=== PATIENT | female | born 1935 | race American Indian/Alaskan Native ===

== ENCOUNTER 2018-01-28 14:47 | Emergency (ER) | payer MEDICARE ==
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
[2018-01-28 17:35] LABS: Basophils % (Auto) 0.1 % (0.0-1.8); Eosinophils % (Auto) 0.7 % (0.0-4.3); Hematocrit 34.8 % (30.3-42.9); Hemoglobin 11.3 gm/dl (10.1-14.3); Lymphocytes # (Auto) 1.7 K/mm3 (1.2-5.4); Lymphocytes % (Auto) 29.8 % (13.4-35.0); Mean Corpuscular HGB Conc 33 % (30-34); Mean Corpuscular Hemoglobin 30 pg (28-32); Mean Corpuscular Volume 91 fl (79-97); Monocytes # (Auto) 0.4 K/mm3 (0.0-0.8); Monocytes % (Auto) 7.8 % (0.0-7.3); Platelet Count 152 K/mm3 (140-440); Red Blood Count 3.84 M/mm3 (3.65-5.03); Red Cell Distribution Width 14.4 % (13.2-15.2)
[2018-01-28 17:43] LABS: Bacteria,Urine 4+ /HPF (Negative); Bilirubin,Urine NEG (Negative); Blood,Urine NEG (Negative); Color,Urine Amber (Yellow); Mucus,Urine 3+ /HPF
[2018-01-28 17:47] LABS: RBC,Urine < 1.0 /HPF (0.0-6.0)
[2018-01-28 17:49] LABS: Albumin 3.8 g/dL (3.9-5); Calcium 9.4 mg/dL (8.4-10.2)
[2018-01-28 17:49] LABS: Benzodiazepines Screen,Urine PRESUMPTIVE NEGATIVE; Cocaine Screen,Urine PRESUMPTIVE NEGATIVE; Methadone Screen,Urine PRESUMPTIVE NEGATIVE; Opiate Screen,Urine PRESUMPTIVE NEGATIVE
[2018-01-28 18:08] LABS: Amphetamine Screen,Urine PRESUMPTIVE POSITIVE; Cannabinoid Screen,Urine PRESUMPTIVE POSITIVE
[2018-01-29 06:14] LABS: Bacteria,Urine 1+ /HPF (Negative); Bilirubin,Urine NEG (Negative); Blood,Urine MOD (Negative); Color,Urine Yellow (Yellow); Mucus,Urine FEW /HPF; Protein,Urine <15 mg/dL mg/dL (Negative); Urobilinogen,Urine < 2.0 mg/dL (<2.0)
[2018-01-29 06:19] LABS: Amphetamine Screen,Urine PRESUMPTIVE NEGATIVE; Cannabinoid Screen,Urine PRESUMPTIVE NEGATIVE; Cocaine Screen,Urine PRESUMPTIVE NEGATIVE; Methadone Screen,Urine PRESUMPTIVE NEGATIVE; Opiate Screen,Urine PRESUMPTIVE NEGATIVE
[2018-01-29 06:33] LABS: Benzodiazepines Screen,Urine PRESUMPTIVE POSITIVE
--- NOTE | 2018-01-29 10:30 | Emergency Department Report ---
Blank Doc - Documentation Documentation: Patient is an 82-year-old female presents emergency room aggressive behaviors and dementia. Patient has been cleared by mental health. Patient denies suicidal and homicidal ideations at this time. Patient appears to be stable. Patient answers all questions appropriately. Patient is A&OX2. Patient is stable to be discharged to personal intermediate. Patient aware of discharge instructions. Patient voiced understanding. Nurse to give family member discharge instructions.
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
[2018-01-30 07:37] VITALS: BP 122/78
== END 2018-01-30 17:47 | disposition home or self-care (01) ==
LOC: ED 14:47
DX: F03.90 Unspecified dementia, unspecified severity, without behavioral disturbance, psychotic disturbance, mood disturbance, and anxiety (principal); N39.0 Urinary tract infection, site not specified; F91.8 Other conduct disorders; Z79.899 Other long term (current) drug therapy
CPT/HCPCS: 36415; 80053; 80307; 81001; 85025; 99283; G0480; 80320

== ENCOUNTER 2018-11-29 10:12 | Inpatient (IN) | payer MEDICARE ==
[2018-11-29] MEDS ORDERED: NACL 0.9% 500 ML 500 ML IV ONE (10:34)
[2018-11-29] MEDS ORDERED: PROTONIX IV ONE (10:35)
[2018-11-29] MEDS ORDERED: NACL 0.9% 1000 ML 1,000 ML ONE (10:56)
--- NOTE | 2018-11-29 11:15 | Emergency Department Report ---
ED General Adult HPI - General Chief complaint: GI Bleed Stated complaint: BLEEDING FROM RECTUM Time Seen by Provider: 11/29/18 10:34 Source: patient Mode of arrival: Ambulatory Limitations: No Limitations - History of Present Illness Initial comments: Since an 82-year-old female states that she is "squirting blood" from her rectum. She is here with I presume a daughter. They state that she had a colonoscopy in June by Dr. Sosa and "nothing was found" for the same problem. The patient has a history of dementia. They also state that she had a "infected hemorrhoid". The patient seems to have some sort of delusion about a surgical procedure. However the family states that she had no rectal surgery or procedure whatsoever. The patient cannot tell me whether she is having diarrhea or solid stool other than it comes out as above indicated. She states that she has some burning in the rectal area. She denies abdominal pain nausea vomiting fever or chills. -: hour(s) Severity scale (0 -10): 0 Consistency: intermittent Improves with: none Worsens with: none Associated Symptoms: denies other symptoms - Related Data Home Medications Medication Instructions Recorded Confirmed Last Taken Anusol-Hc 2.5 applic AK BID 09/18/18 09/18/18 Unknown Aricept 5 mg PO HS 09/18/18 09/18/18 Unknown Meloxicam 7.5 mg PO BID 09/18/18 09/18/18 Unknown Miralax 3350 17 gram PO DAILY PRN 09/18/18 09/18/18 Unknown Namenda 5 mg PO DAILY 09/18/18 09/18/18 Unknown Plo Gel Premium Lecithin 0.5 ml TP Q6HR PRN 09/18/18 09/18/18 Unknown clonazePAM 0.25 mg PO BID 09/18/18 09/18/18 Unknown Previous Rx's Medication Instructions Recorded Last Taken Type Hydrocortisone [Anucort-HC SUPPOS] 25 mg AK Q12H #10 supp.rect 09/19/18 Unknown Rx levoFLOXacin [Levaquin TAB] 500 mg PO QDAY #7 tablet 09/19/18 Unknown Rx Allergies Allergy/AdvReac Type Severity Reaction Status Date / Time No Known Allergies Allergy Verified 11/29/18 10:57 ED Review of Systems ROS: Stated complaint: BLEEDING FROM RECTUM Other details as noted in HPI Constitutional: denies: chills, fever Eyes: denies: eye pain, eye discharge, vision change ENT: denies: ear pain, throat pain Respiratory: denies: cough, shortness of breath, wheezing Cardiovascular: denies: chest pain, palpitations Endocrine: no symptoms reported Gastrointestinal: hematochezia. denies: abdominal pain, nausea, diarrhea Genitourinary: denies: urgency, dysuria, discharge Musculoskeletal: denies: back pain, joint swelling, arthralgia Skin: denies: rash, lesions Neurological: denies: headache, weakness, paresthesias Psychiatric: denies: anxiety, depression Hematological/Lymphatic: denies: easy bleeding, easy bruising ED Past Medical Hx - Past Medical History Hx Dementia: Yes Additional medical history: rectal polyps. Dementia - Social History Smoking Status: Never Smoker - Medications Home Medications: Home Medications Medication Instructions Recorded Confirmed Last Taken Type Anusol-Hc 2.5 applic AK BID 09/18/18 09/18/18 Unknown History Aricept 5 mg PO HS 09/18/18 09/18/18 Unknown History Meloxicam 7.5 mg PO BID 09/18/18 09/18/18 Unknown History Miralax 3350 17 gram PO DAILY PRN 09/18/18 09/18/18 Unknown History Namenda 5 mg PO DAILY 09/18/18 09/18/18 Unknown History Plo Gel Premium Lecithin 0.5 ml TP Q6HR PRN 09/18/18 09/18/18 Unknown History clonazePAM 0.25 mg PO BID 09/18/18 09/18/18 Unknown History Hydrocortisone [Anucort-HC SUPPOS] 25 mg AK Q12H #10 supp.rect 09/19/18 Unknown Rx levoFLOXacin [Levaquin TAB] 500 mg PO QDAY #7 tablet 09/19/18 Unknown Rx ED Physical Exam - General Limitations: No Limitations General appearance: alert, in no apparent distress - Head Head exam: Present: atraumatic, normocephalic - Eye Eye exam: Present: normal appearance. Absent: scleral icterus - ENT ENT exam: Present: mucous membranes moist - Neck Neck exam: Present: normal inspection - Respiratory Respiratory exam: Present: normal lung sounds bilaterally. Absent: respiratory distress - Cardiovascular Cardiovascular Exam: Present: regular rate, normal rhythm. Absent: systolic murmur, diastolic murmur, rubs, gallop - GI/Abdominal GI/Abdominal exam: Present: soft, normal bowel sounds. Absent: distended, tenderness, guarding, rebound, rigid - Rectal Rectal exam: Present: heme (-) stool (Hemoccult test was completely negative. The stool was light brown and semisolid. There is no mass or significant hemorrhoid noted.), mass. Absent: black stool, bloody stool, tenderness - Extremities Exam Extremities exam: Present: normal inspection - Back Exam Back exam: Present: normal inspection - Neurological Exam Neurological exam: Present: alert, oriented X3, CN II-XII intact. Absent: motor sensory deficit - Psychiatric Psychiatric exam: Present: normal affect, normal mood - Skin Skin exam: Present: warm, dry, intact, normal color. Absent: rash ED Course Vital Signs 11/29/18 10:19 Pulse Rate 98 H Respiratory 18 Rate Blood Pressure 136/84 [Left] O2 Sat by Pulse 100 Oximetry - Reevaluation(s) Reevaluation #1: The patient is apparently fine depleted and prerenal. We will proceed with straight cath. IV fluids. Admission to hospital service for acute evaluation. 11/29/18 13:34 ED Medical Decision Making - Lab Data Result diagrams: 11/29/18 11:08 11/29/18 11:08 Laboratory Results - last 24 hr 11/29/18 11/29/18 11/29/18 11:08 11:08 11:08 WBC 5.6 RBC 4.08 Hgb 12.0 Hct 36.5 MCV 89 MCH 29 MCHC 33 RDW 14.2 Plt Count 229 Lymph % (Auto) 37.7 H Crawford % (Auto) 9.3 H Eos % (Auto) 0.4 Baso % (Auto) 0.3 Lymph # 2.1 Crawford # 0.5 Eos # 0.0 Baso # 0.0 Seg Neutrophils % 52.3 Seg Neutrophils # 2.9 PT 14.1 INR 1.05 APTT 28.1 Sodium 144 Potassium 4.9 Chloride 109.3 H Carbon Dioxide 22 Anion Gap 18 BUN 36 H Creatinine 1.9 H Estimated GFR 30 BUN/Creatinine Ratio 19 Glucose 135 H Lactic Acid Calcium 9.4 Magnesium 2.00 Total Bilirubin 0.30 Direct Bilirubin < 0.2 Indirect Bilirubin 0.1 AST 25 ALT 11 Alkaline Phosphatase 75 Troponin T NT-Pro-B Natriuret Pep Total Protein 7.6 Albumin 4.0 Albumin/Globulin Ratio 1.1 Lipase 35 Blood Type Antibody Screen 11/29/18 11/29/18 11/29/18 11:08 11:08 11:08 WBC RBC Hgb Hct MCV MCH MCHC RDW Plt Count Lymph % (Auto) Crawford % (Auto) Eos % (Auto) Baso % (Auto) Lymph # Crawford # Eos # Baso # Seg Neutrophils % Seg Neutrophils # PT INR APTT Sodium Potassium Chloride Carbon Dioxide Anion Gap BUN Creatinine Estimated GFR BUN/Creatinine Ratio Glucose Lactic Acid 1.50 Calcium Magnesium Total Bilirubin Direct Bilirubin Indirect Bilirubin AST ALT Alkaline Phosphatase Troponin T 0.023 NT-Pro-B Natriuret Pep 88.09 Total Protein Albumin Albumin/Globulin Ratio Lipase Blood Type O POSITIVE Antibody Screen Negative - Radiology Data Radiology results: report reviewed FINDINGS: Unchanged aortic calculi. The cardiomediastinal silhouette is normal. No focal consolidation. Mild ground-glass opacities are seen in the lower lobes. There is a subtle rounded ground-glass nodular opacity projecting in the medial aspect of the right upper lobe measuring 1.8 centimeters. No pleural effusion. No pneumothorax. No acute osseous abnormality. IMPRESSION: 1. Mild bibasilar atelectasis versus early pneumonia. 2. Subtle nodular opacity projecting in the medial aspect of the right upper lobe. Recommend further evaluation with chest CT with contrast. Critical care attestation.: If time is entered above; I have spent that time in minutes in the direct care of this critically ill patient, excluding procedure time. ED Disposition Clinical Impression: Acute renal failure with tubular necrosis, Hematochezia Dementia Qualifiers: Dementia type: unspecified type Dementia behavioral disturbance: with behavioral disturbance Qualified Code(s): F03.91 - Unspecified dementia with behavioral disturbance Disposition: OP ADMIT IP TO THIS HOSP Is pt being admited?: Yes Does the pt Need Aspirin: No Condition: Stable Referrals: MATTY HENDERSON [Primary Care Provider] - 3-5 Days Forms: Accompanied Note Time of Disposition: 13:35
--- NOTE | 2018-11-29 11:27 | XRay Report ---
FINAL REPORT EXAM: XR CHEST 1V AP HISTORY: GI Bleed TECHNIQUE: Frontal chest radiograph. PRIORS: 09/18/2018. FINDINGS: Unchanged aortic calculi. The cardiomediastinal silhouette is normal. No focal consolidation. Mild ground-glass opacities are seen in the lower lobes. There is a subtle ro unded ground-glass nodular opacity projecting in the medial aspect of the right upper lobe measuring 1.8 centimeters. No pleural effusion. No pneumothorax. No acute osseous abnormality. IMPRESSION: 1. Mild bibasilar atelectasis versus early pneumonia. 2. Subtle nodular opacity projecting in the medial aspect of the right upper lobe. Recommend further evaluation with chest CT with contrast.
[2018-11-29 11:51] LABS: Alanine Aminotransferase 11 units/L (7-56); BUN/Creatinine Ratio 19; Blood Urea Nitrogen 36 mg/dL (7-17); Calcium 9.4 mg/dL (8.4-10.2); Hemolysis Index 6
[2018-11-29 11:52] LABS: Basophils % (Auto) 0.3 % (0.0-1.8); Eosinophils % (Auto) 0.4 % (0.0-4.3); Hematocrit 36.5 % (30.3-42.9); Lymphocytes # (Auto) 2.1 K/mm3 (1.2-5.4); Lymphocytes % (Auto) 37.7 % (13.4-35.0); Mean Corpuscular HGB Conc 33 % (30-34); Mean Corpuscular Volume 89 fl (79-97); Monocytes # (Auto) 0.5 K/mm3 (0.0-0.8); Monocytes % (Auto) 9.3 % (0.0-7.3); Platelet Count 229 K/mm3 (140-440); Red Blood Count 4.08 M/mm3 (3.65-5.03); Red Cell Distribution Width 14.2 % (13.2-15.2)
[2018-11-29 11:55] LABS: Bilirubin,Direct < 0.2 mg/dL (0-0.2)
[2018-11-29 12:03] LABS: INR 1.05 (0.87-1.13)
[2018-11-29 12:04] LABS: Partial Thromboplastin Time 28.1 Sec. (24.2-36.6)
[2018-11-29] MEDS ORDERED: NACL 0.9% 1000 ML 1,000 ML IV ONE (12:46)
--- NOTE | 2018-11-29 13:30 | History and Physical Report ---
History of Present Illness Chief complaint: She is getting more confused, and not eating and drinking anything History of present illness: 82 YO Female Assisted Living Facility Resident with Dementia with Behavioral dis turbance, Rectal Polyps presents to ED for evaluation. Pt is confused and unable to provide detailed history. Pt history taken from her daughter who is at bedside during exam and interview. As per daughter, the patient has experienced worsening confusion, hallucinations, and decreased oral intake over the past 2 weeks, as well as delusions. Pt complains of rectal bleeding without evidence of bleeding. Pt transported to [facility] by her daughter for further care and evaluation due to patient complaints of "blood coming out of my butt". Pt seen and evaluated in ED and found to have ARF, Encephalopathy, and Debility. No evidence of rectal bleeding on exam without blood in the rectal vault. No further history obtainable. Past History Past Medical History: other (Dementia, Rectal Polyps) Past Surgical History: Other (colonoscopy) Social history: . denies: smoking, alcohol abuse, prescription drug abuse Family history: no significant family history (reviewed) Medications and Allergies Allergies Allergy/AdvReac Type Severity Reaction Status Date / Time No Known Allergies Allergy Verified 11/29/18 10:57 Home Medications Medication Instructions Recorded Confirmed Last Taken Type Anusol-Hc 2.5 applic [place] BID 09/18/18 09/18/18 Unknown History Aricept 5 mg PO HS 09/18/18 09/18/18 Unknown History Meloxicam 7.5 mg PO BID 09/18/18 09/18/18 Unknown History Miralax 3350 17 gram PO DAILY PRN 09/18/18 09/18/18 Unknown History Namenda 5 mg PO DAILY 09/18/18 09/18/18 Unknown History Plo Gel Premium Lecithin 0.5 ml TP Q6HR PRN 09/18/18 09/18/18 Unknown History clonazePAM 0.25 mg PO BID 09/18/18 09/18/18 Unknown History Hydrocortisone [Anucort-HC SUPPOS] 25 mg [place] Q12H #10 supp.rect 09/19/18 Unknown Rx levoFLOXacin [Levaquin TAB] 500 mg PO QDAY #7 tablet 09/19/18 Unknown Rx Active Meds: Active Medications Sodium Chloride (Nacl 0.9% 1000 Ml) 1,000 mls @ 125 mls/hr IV ONCE ONE Stop: 11/29/18 20:45 Review of Systems ROS unobtainable: due to mental status Exam - Constitutional Vitals: Temp Pulse Resp BP Pulse Ox 98 H 18 136/84 100 11/29/18 10:19 11/29/18 10:19 11/29/18 10:19 11/29/18 10:19 General appearance: Present: mild distress - EENT Eyes: Present: PERRL ENT: hearing intact, clear oral mucosa - Neck Neck: Present: supple, normal ROM - Respiratory Respiratory effort: normal Respiratory: bilateral: CTA - Cardiovascular Heart Sounds: Present: S1 & S2. Absent: rub, click - Extremities Extremities: pulses symmetrical, No edema Peripheral Pulses: within normal limits - Abdominal General gastrointestinal: Present: soft, non-tender, non-distended, normal bowel sounds Female genitourinary: Present: normal - Rectal Rectal Exam: normal exam-external/orifice, other (No blood in rectal vault, no evidence of rectal bleeding, no hemorrhoids) - Integumentary Integumentary: Present: clear, dry, decreased turgor - Musculoskeletal Musculoskeletal: generalized weakness - Psychiatric Psychiatric: no appropriate mood/affect, no intact judgment & insight, no memory intact, agitated - Neurologic Neurologic: no gait normal Results - Labs CBC & Chem 7: 11/29/18 11:08 11/29/18 11:08 Labs: Abnormal lab results 11/29/18 11/29/18 Range/Units 11:08 11:08 Lymph % (Auto) 37.7 H (13.4-35.0) % [place] % (Auto) 9.3 H (0.0-7.3) % Chloride 109.3 H (98-107) mmol/L BUN 36 H (7-17) mg/dL Creatinine 1.9 H (0.7-1.2) mg/dL Glucose 135 H (65-100) mg/dL Assessment and Plan - Patient Problems (1) Encephalopathies Current Visit: Yes Status: Acute Plan to address problem: CT head, neuro check, thyroid panel, fall precautions, aspiration precautions, seizure precautions, supportive care, urinalysis, cbc, cmp. (2) Volume depletion Current Visit: Yes Status: Acute Plan to address problem: IVF resuscitation therapy, monitor uop q shift, urinalysis (3) Acute renal failure with tubular necrosis Current Visit: Yes Status: Acute Plan to address problem: IVF resuscitation therapy, monitor uop q shift, urinalysis (4) DVT prophylaxis Current Visit: Yes Status: Acute Plan to address problem: SCD to BLE while in bed.
[2018-11-29] MEDS ORDERED: PROVENTIL IH PRN (13:31)
[2018-11-29] MEDS ORDERED: SODIUM CHLORIDE FLUSH SYRINGE 10 ML IV PRN (13:31)
[2018-11-29] MEDS ORDERED: MIRALAX PO PRN (13:33)
[2018-11-29] MEDS ORDERED: [UNRECOGNIZED DRUG - OTHER] TP PRN (13:33)
[2018-11-29] MEDS ORDERED: MIRALAX 3350 PO PRN (13:49)
[2018-11-29] MEDS: ANUCORT-HC PR SCH (14:20)
[2018-11-29 16:02] LABS: Free T4 (Free Thyroxine) 1.12 ng/dL (0.76-1.46)
--- NOTE | 2018-11-29 18:03 | Cat Scan Report ---
FINAL REPORT EXAM: CT HEAD/BRAIN WO CON HISTORY: confusion TECHNIQUE: CT head without contrast PRIORS: None. FINDINGS: No acute intra-axial or extra-axial hemorrhage is identified. There is no evidence of midline shift or mass effect. The ventricles and sulci are within normal limits. Mora-white matter differentiation is intact. No acute parenchymal abnormalities seen. Bony calvarium is grossly intact. Visualized portions of the mastoids and paranasal sinuses are unre markable. IMPRESSION: Negative CT head
[2018-11-29] MEDS: SODIUM CHLORIDE FLUSH SYRINGE 10 ML IV SCH (21:12)
[2018-11-29] MEDS: ARICEPT PO SCH (21:12)
[2018-11-29] MEDS ORDERED: MELOXICAM 7.5 MG PO SCH (22:00)
[2018-11-29] MEDS ORDERED: CLONAZEPAM 0.25 MG PO SCH (22:00)
[2018-11-29] MEDS ORDERED: ARICEPT 5 MG PO SCH (22:00)
[2018-11-29] MEDS ORDERED: ANUSOL HC PR SCH (22:00)
[2018-11-29] MEDS: MOBIC PO SCH (23:25)
[2018-11-29] MEDS: PROCTOSOL-HC PR SCH (23:26)
[2018-11-30] MEDS: ANUCORT-HC PR SCH ×2 (02:30→15:00)
[2018-11-30] MEDS ORDERED: NAMENDA 5 MG PO SCH (10:00)
[2018-11-30] MEDS: NAMENDA PO SCH (10:46)
[2018-11-30] MEDS: MOBIC PO SCH ×2 (10:47→22:53)
[2018-11-30] MEDS: SODIUM CHLORIDE FLUSH SYRINGE 10 ML IV SCH ×2 (10:50→22:53)
[2018-11-30] MEDS: PROCTOSOL-HC PR SCH ×2 (11:00→22:51)
[2018-11-30 13:37] LABS: Hematocrit 33.5 % (30.3-42.9); Hemoglobin 11.2 gm/dl (10.1-14.3)
--- NOTE | 2018-11-30 15:20 | Progress Note ---
Assessment and Plan Assessment and plan: 82 YO Female Assisted Living Facility Resident with Dementia with Behavioral disturbance, Rectal Polyps presents to ED for evaluation. Pt is confused and unable to provide detailed history. Pt history taken from her daughter who is at bedside during exam and interview. As per daughter, the patient has experienced worsening confusion, hallucinations, and decreased oral intake over the past 2 weeks, as well as delusions. Pt complains of rectal bleeding without evidence of bleeding. Pt transported to [facility] by her daughter for further care and evaluation due to patient complaints of "blood coming out of my butt". Pt seen and evaluated in ED and found to have ARF, Encephalopathy, and Debility. No evidence of rectal bleeding on exam without blood in the rectal vault. Interval evaluation Patient seen today reports no new complaints, Per review of records, patient with baseline Dementia and appears to be at baseline. No new bleeding noted Rectal Hemorrhioids with suspected bleed Acute on chronic Encephalopathy Atalectasis Acute Renal failure with tubular Necrosis Dehydration Dementia Plan Supportive care Continue iv fluids IS to help with noted atalectasis No evidence of sepsis. monitor h/h and repeat BMP. Anusol to rectum DVT/GI porphy anticipate discharge in am if renal function improved Discussed with Nursing staff. History Interval history: Patient is seen today for: Altered mental status. Seen and examined at bedside; 24hour events reviewed; nursing staff ; no adverse overnight events reported to me; Denies any chest pain, nausea, vomiting, diarrhea. reports feeling pain in her "backside" chronic per the patient. No new bleeding noted No fever noted blood pressure controlled Hospitalist Physical - Physical exam Narrative exam: VITAL SIGNS: Reviewed. GENERAL: The patient appeared well nourished and normally developed. Otherwise lethargic. Vital signs as documented. HEAD: No signs of head trauma. EYES: Pupils are equal. Extraocular motions intact. EARS: Hearing grossly intact. MOUTH: Oropharynx is normal. NECK: No adenopathy, no JVD. CHEST: Chest with clear breath sounds bilaterally. No wheezes, rales, or rhonchi. CARDIAC: Regular rate and rhythm. S1 and S2, without murmurs, gallops, or rubs. VASCULAR: No Edema. Peripheral pulses normal and equal in all extremities. ABDOMEN: Soft, without detectable tenderness. No sign of distention. No rebound or guarding, and no masses palpated. Bowel Sounds normal. MUSCULOSKELETAL: Good range of motion of all major joints. Extremities without clubbing, cyanosis or edema. NEUROLOGIC EXAM: Alert and oriented x 3. No focal sensory or strength deficits. Speech normal. Follows commands. PSYCHIATRIC: Mood normal SKIN: No rash or lesions. - Constitutional Vitals: Temp Pulse Resp BP Pulse Ox 97.9 F 64 20 127/65 99 11/30/18 13:27 11/30/18 13:27 11/30/18 13:27 11/30/18 13:27 11/30/18 13:27 General appearance: Present: mild distress Results - Labs CBC & Chem 7: 11/30/18 13:07 11/29/18 11:08 Labs: Laboratory Last Values WBC 5.6 K/mm3 (4.5-11.0) 11/29/18 11:08 RBC 4.08 M/mm3 (3.65-5.03) 11/29/18 11:08 Hgb 11.2 gm/dl (10.1-14.3) 11/30/18 13:07 Hct 33.5 % (30.3-42.9) 11/30/18 13:07 MCV 89 fl (79-97) 11/29/18 11:08 MCH 29 pg (28-32) 11/29/18 11:08 MCHC 33 % (30-34) 11/29/18 11:08 RDW 14.2 % (13.2-15.2) 11/29/18 11:08 Plt Count 229 K/mm3 (140-440) 11/29/18 11:08 Lymph % (Auto) 37.7 % (13.4-35.0) H 11/29/18 11:08 [place] % (Auto) 9.3 % (0.0-7.3) H 11/29/18 11:08 Eos % (Auto) 0.4 % (0.0-4.3) 11/29/18 11:08 Baso % (Auto) 0.3 % (0.0-1.8) 11/29/18 11:08 Lymph # 2.1 K/mm3 (1.2-5.4) 11/29/18 11:08 [place] # 0.5 K/mm3 (0.0-0.8) 11/29/18 11:08 Eos # 0.0 K/mm3 (0.0-0.4) 11/29/18 11:08 Baso # 0.0 K/mm3 (0.0-0.1) 11/29/18 11:08 Seg Neutrophils % 52.3 % (40.0-70.0) 11/29/18 11:08 Seg Neutrophils # 2.9 K/mm3 (1.8-7.7) 11/29/18 11:08 PT 14.1 Sec. (12.2-14.9) 11/29/18 11:08 INR 1.05 (0.87-1.13) 11/29/18 11:08 APTT 28.1 Sec. (24.2-36.6) 11/29/18 11:08 Sodium 144 mmol/L (137-145) 11/29/18 11:08 Potassium 4.9 mmol/L (3.6-5.0) 11/29/18 11:08 Chloride 109.3 mmol/L (98-107) H 11/29/18 11:08 Carbon Dioxide 22 mmol/L (22-30) 11/29/18 11:08 Anion Gap 18 mmol/L 11/29/18 11:08 BUN 36 mg/dL (7-17) H 11/29/18 11:08 Creatinine 1.9 mg/dL (0.7-1.2) H 11/29/18 11:08 Estimated GFR 30 ml/min 11/29/18 11:08 BUN/Creatinine Ratio 19 % 11/29/18 11:08 Glucose 135 mg/dL (65-100) H 11/29/18 11:08 Lactic Acid 1.50 mmol/L (0.7-2.0) 11/29/18 11:08 Calcium 9.4 mg/dL (8.4-10.2) 11/29/18 11:08 Magnesium 2.00 mg/dL (1.7-2.3) 11/29/18 11:08 Total Bilirubin 0.30 mg/dL (0.1-1.2) 11/29/18 11:08 Direct Bilirubin < 0.2 mg/dL (0-0.2) 11/29/18 11:08 Indirect Bilirubin 0.1 mg/dL 11/29/18 11:08 AST 25 units/L (5-40) 11/29/18 11:08 ALT 11 units/L (7-56) 11/29/18 11:08 Alkaline Phosphatase 75 units/L (35-129) 11/29/18 11:08 Troponin T 0.023 ng/mL (0.00-0.029) 11/29/18 11:08 NT-Pro-B Natriuret Pep 88.09 pg/mL (0-900) 11/29/18 11:08 Total Protein 7.6 g/dL (6.3-8.2) 11/29/18 11:08 Albumin 4.0 g/dL (3.9-5) 11/29/18 11:08 Albumin/Globulin Ratio 1.1 % 11/29/18 11:08 Lipase 35 units/L (13-60) 11/29/18 11:08 TSH 3.810 mlU/mL (0.270-4.200) 11/29/18 15:23 Free T4 1.12 ng/dL (0.76-1.46) 11/29/18 15:23 Blood Type O POSITIVE 11/29/18 11:08 Antibody Screen Negative 11/29/18 11:08
[2018-11-30] MEDS ORDERED: ROCEPHIN/NS 1 GM/50 ML 1 GM/50 ML BAG IV SCH (16:00)
[2018-11-30 16:12] LABS: BUN/Creatinine Ratio 32; Blood Urea Nitrogen 29 mg/dL (7-17); Calcium 9.1 mg/dL (8.4-10.2); Hemolysis Index 9
[2018-11-30 19:38] LABS: Bilirubin,Urine NEG (Negative); Blood,Urine SM (Negative); Color,Urine Yellow (Yellow); Hyaline Casts,Urine 1 /LPF; Mucus,Urine FEW /HPF; Protein,Urine <15 mg/dL mg/dL (Negative); Urobilinogen,Urine < 2.0 mg/dL (<2.0)
[2018-11-30] MEDS: ARICEPT PO SCH (22:52)
[2018-12-01] MEDS: ANUCORT-HC PR SCH ×2 (03:00→15:50)
[2018-12-01 06:15] LABS: BUN/Creatinine Ratio 33; Blood Urea Nitrogen 33 mg/dL (7-17); Calcium 8.7 mg/dL (8.4-10.2); Hemolysis Index 4
[2018-12-01 08:23] VITALS: BP 136/69
[2018-12-01] MEDS: SODIUM CHLORIDE FLUSH SYRINGE 10 ML IV SCH (10:00)
[2018-12-01] MEDS: PROCTOSOL-HC PR SCH (10:01)
[2018-12-01] MEDS: MOBIC PO SCH (10:01)
[2018-12-01] MEDS: NAMENDA PO SCH (10:01)
--- NOTE | 2018-12-01 11:23 | Discharge Summary ---
Providers - Providers Date of Admission: 11/29/18 16:00 Attending physician: DAKOTA HUTTON MD 12/01/18 10:39 Physical Therapy Evaluation and Treat [CONS] Routine Comment: Reason For Exam: Generalized Weakness Primary care physician: MATTY HENDERSON Hospitalization Reason for admission: hemorrhiodal bleed Condition: Stable Hospital course: 82 YO Female Assisted Living Facility Resident with Dementia with Behavioral disturbance, Rectal Polyps presents to ED for evaluation. Pt is confused and unable to provide detailed history. Pt history taken from her daughter who is at bedside during exam and interview. As per daughter, the patient has experienced worsening confusion, hallucinations, and decreased oral intake over the past 2 weeks, as well as delusions. Pt complains of rectal bleeding without evidence of bleeding. Pt transported to [facility] by her daughter for further care and evaluation due to patient complaints of "blood coming out of my butt". Pt seen and evaluated in ED and found to have ARF, Encephalopathy, and Debility. No evidence of rectal bleeding on exam without blood in the rectal vault. Interval evaluation Patient seen today reports no new complaints, Per review of records, patient with baseline Dementia and appears to be at baseline. No new bleeding noted. Hgb remained stable. Medications were discussed in detail and renewed. I also discussed with family about treatment plan options Rectal Hemorrhioids. NO GI BLEED Acute on chronic Encephalopathy Secodnary to Dementia. Now back to baseline Atalectasis Acute Renal failure with tubular Necrosis Dehydration Dementia Disposition: DC/[place]-[address] [facility] Time spent for discharge: 35 mins Core Measure Documentation - Palliative Care Palliative Care/ Comfort Measures: Not Applicable - Core Measures Any of the following diagnoses?: none Exam - Physical Exam Narrative exam: VITAL SIGNS: Reviewed. GENERAL: The patient appeared well nourished and normally developed. Vital signs as documented. HEAD: No signs of head trauma. EYES: Pupils are equal. Extraocular motions intact. EARS: Hearing grossly intact. MOUTH: Oropharynx is normal. NECK: No adenopathy, no JVD. CHEST: Chest with clear breath sounds bilaterally. No wheezes, rales, or rhonchi. CARDIAC: Regular rate and rhythm. S1 and S2, without murmurs, gallops, or rubs. VASCULAR: No Edema. Peripheral pulses normal and equal in all extremities. ABDOMEN: Soft, without detectable tenderness. No sign of distention. No rebound or guarding, and no masses palpated. Bowel Sounds normal. MUSCULOSKELETAL: Good range of motion of all major joints. Extremities without clubbing, cyanosis or edema. NEUROLOGIC EXAM: Alert and oriented x 3. No focal sensory or strength de ficits. Speech normal. Follows commands. PSYCHIATRIC: Mood normal SKIN: No rash or lesions. - Constitutional Vitals: Temp Pulse Resp BP Pulse Ox 98.5 F 62 20 136/69 97 12/01/18 07:29 12/01/18 10:00 12/01/18 07:29 12/01/18 07:29 12/01/18 07:29 Plan Activity: advance as tolerated, fall precautions Diet: low fat Special Instructions: record daily BP diary Follow up with: MATTY HENDERSON [Primary Care Provider] - 3-5 Days Forms: Accompanied Note Prescriptions: Anusol-Hc 2.5 applic [place] BID #1 Miralax 3350 17 gram PO DAILY PRN #14 PRN Reason: Constipation
== END 2018-12-01 16:25 | disposition home or self-care (01) | DRG 70 ==
LOC: ED 10:12 → 2B-ACE 16:00
PROVIDERS: ADMIT Internal Medicine; ATTEND Internal Medicine
DX: G93.40 Encephalopathy, unspecified (principal); N17.0 Acute kidney failure with tubular necrosis; J98.11 Atelectasis; F03.91 Unspecified dementia, unspecified severity, with behavioral disturbance; K64.8 Other hemorrhoids; E86.9 Volume depletion, unspecified; E86.0 Dehydration; Z79.899 Other long term (current) drug therapy
CPT/HCPCS: 36415; 70450; 71045; 80048; 80076; 81001; 82140; 83690; 83735; 83880; 84439; 84443; 84484; 85014; 85018; 85025; 85610; 85730; 86850; 86900; 86901; 87116; 93005; 93010; G0378; C9113; J7030

== ENCOUNTER 2019-08-25 08:19 | Observation (INO) | payer MEDICARE ==
--- NOTE | 2019-08-25 09:04 | Emergency Department Report ---
ED Chest Pain HPI - General Chief Complaint: Chest Pain Stated Complaint: CHEST DISCOMFORT Time Seen by Provider: 08/25/19 08:56 Source: EMS Mode of arrival: Stretcher Limitations: No Limitations - History of Present Illness Initial Comments: Patient is 83 years old female with history of dementia, living in assisted living facility. Patient brought to the emergency room via EMS for evaluation of chest pain. Patient is pointing to her left side of the chest. When asked if the pain is sharp or pressure she applied pressure. Patient denied any lemuel rtness of breath, fever or chills. no Cough. MD Complaint: chest pain -: This morning Pain Location: left chest Pain Radiation: none Quality: heaviness - Related Data Home Medications Medication Instructions Recorded Confirmed Last Taken Aricept 5 mg PO HS 09/18/18 09/18/18 Unknown Meloxicam 7.5 mg PO BID 09/18/18 09/18/18 Unknown Namenda 5 mg PO DAILY 09/18/18 09/18/18 Unknown Plo Gel Premium Lecithin 0.5 ml TP Q6HR PRN 09/18/18 09/18/18 Unknown clonazePAM 0.25 mg PO BID 09/18/18 09/18/18 Unknown Previous Rx's Medication Instructions Recorded Last Taken Type Hydrocortisone [Anucort-HC SUPPOS] 25 mg [place] Q12H #10 supp.rect 09/19/18 Unknown Rx levoFLOXacin [Levaquin TAB] 500 mg PO QDAY #7 tablet 09/19/18 Unknown Rx Anusol-Hc 2.5 applic [place] BID #1 12/01/18 Unknown Rx Miralax 3350 17 gram PO DAILY PRN #14 12/01/18 Unknown Rx Allergies Allergy/AdvReac Type Severity Reaction Status Date / Time No Known Allergies Allergy Verified 11/29/18 10:57 Heart Score - HEART Score History: Moderately suspicious EKG: Non-specific Age: > 65 Risk factors: 1-2 risk factors Troponin: < normal limit HEART Score: 5 - Critical Actions Critical Actions: 4-6 pts:12-16.6% risk of adverse cardiac event. Should be admitted ED Review of Systems ROS: Stated complaint: CHEST DISCOMFORT Other details as noted in HPI Comment: All other systems reviewed and negative Constitutional: denies: chills, fever Respiratory: denies: cough, shortness of breath, SOB with exertion, SOB at rest, wheezing Cardiovascular: chest pain. denies: palpitations, dyspnea on exertion Gastrointestinal: denies: abdominal pain, nausea, vomiting Musculoskeletal: denies: back pain Neurological: denies: headache, weakness ED Past Medical Hx - Past Medical History Previous Medical History?: Yes Hx Dementia: Yes Additional medical history: rectal polyps. Dementia - Surgical History Past Surgical History?: No - Social History Smoking Status: Unknown if ever smoked Substance Use Type: None - Medications Home Medications: Home Medications Medication Instructions Recorded Confirmed Last Taken Type Aricept 5 mg PO HS 09/18/18 09/18/18 Unknown History Meloxicam 7.5 mg PO BID 09/18/18 09/18/18 Unknown History Namenda 5 mg PO DAILY 09/18/18 09/18/18 Unknown History Plo Gel Premium Lecithin 0.5 ml TP Q6HR PRN 09/18/18 09/18/18 Unknown History clonazePAM 0.25 mg PO BID 09/18/18 09/18/18 Unknown History Hydrocortisone [Anucort-HC SUPPOS] 25 mg [place] Q12H #10 supp.rect 09/19/18 Unknown Rx levoFLOXacin [Levaquin TAB] 500 mg PO QDAY #7 tablet 09/19/18 Unknown Rx Anusol-Hc 2.5 applic [place] BID #1 12/01/18 Unknown Rx Miralax 3350 17 gram PO DAILY PRN #14 12/01/18 Unknown Rx ED Physical Exam - General Limitations: No Limitations General appearance: alert, in no apparent distress - Head Head exam: Present: atraumatic, normocephalic, normal inspection - Eye Eye exam: Present: normal appearance - ENT ENT exam: Present: normal exam, normal orophraynx, mucous membranes moist - Neck Neck exam: Present: normal inspection, full ROM. Absent: tenderness, meningismus, lymphadenopathy, thyromegaly - Respiratory Respiratory exam: Present: normal lung sounds bilaterally - Cardiovascular Cardiovascular Exam: Present: regular rate, normal rhythm, normal heart sounds - GI/Abdominal GI/Abdominal exam: Present: soft, normal bowel sounds. Absent: distended, tenderness, guarding, rebound, rigid, mass, bruit, pulsatile mass, hernia - Extremities Exam Extremities exam: Present: normal inspection, full ROM, normal capillary refill. Absent: pedal edema, calf tenderness - Back Exam Back exam: Present: normal inspection, full ROM. Absent: CVA tenderness (R), CVA tenderness (L) - Neurological Exam Neurological exam: Present: alert, oriented X3, CN II-XII intact, normal gait, reflexes normal - Psychiatric Psychiatric exam: Present: normal mood - Skin Skin exam: Present: warm, intact, normal color ED Course Vital Signs 08/25/19 08/25/19 08/25/19 08:20 08:30 08:36 Temperature 98 F Pulse Rate 78 74 Respiratory 12 11 L Rate Blood Pressure 172/89 O2 Sat by Pulse 100 100 100 Oximetry 08/25/19 09:00 Temperature Pulse Rate 67 Respiratory 13 Rate Blood Pressure 157/91 O2 Sat by Pulse 100 Oximetry ED Medical Decision Making - Lab Data Result diagrams: 08/25/19 09:13 08/25/19 09:13 - EKG Data -: EKG Interpreted by Al EKG shows normal: sinus rhythm Rate: normal - EKG Data Interpretation: no acute changes - Radiology Data Radiology results: report reviewed - Medical Decision Making Patient is 83 years old female with history of dementia, living in assisted living facility. Patient brought to the emergency room via EMS for evaluation of chest pain. Patient is pointing to her left side of the chest. When asked if the pain is sharp or pressure she applied pressure. Patient denied any shortness of breath, fever or chills. no Cough. EKG showed no ST elevation. Labs reviewed and is unremarkable including a negative troponin. Patient remained stable in the ER. Chest x-ray showed a right lower lobe consolidation, radiologist favoring atelectasis. Patient does not have any fever or chills or cough to indicate pneumonia. I discussed the patient with , advised to admit patient to Dr. Florentino. Critical care attestation.: If time is entered above; I have spent that time in minutes in the direct care of this critically ill patient, excluding procedure time. ED Disposition Clinical Impression: Chest pain Disposition: OP ADMIT IP TO THIS HOSP Is pt being admited?: Yes Condition: Stable Instructions: Chest Pain (ED) Referrals: PRIMARY CARE, [Primary Care Provider] - 3-5 Days
[2019-08-25 09:29] LABS: Basophils % (Auto) 0.8 % (0.0-1.8); Eosinophils % (Auto) 0.8 % (0.0-4.3); Hematocrit 31.5 % (30.3-42.9); Hemoglobin 10.3 gm/dl (10.1-14.3); Lymphocytes # (Auto) 1.7 K/mm3 (1.2-5.4); Lymphocytes % (Auto) 39.2 % (13.4-35.0); Mean Corpuscular HGB Conc 33 % (30-34); Mean Corpuscular Volume 90 fl (79-97); Monocytes # (Auto) 0.3 K/mm3 (0.0-0.8); Monocytes % (Auto) 7.1 % (0.0-7.3); Platelet Count 228 K/mm3 (140-440); Red Blood Count 3.51 M/mm3 (3.65-5.03); Red Cell Distribution Width 14.7 % (13.2-15.2)
--- NOTE | 2019-08-25 09:40 | XRay Report ---
CHEST 1 VIEW INDICATION: Chest Pain. COMPARISON: 11/29/2018 FINDINGS: Support devices: None. Heart: Within normal limits. Lungs/Pleura: There is hazy opacity at the right lung base which probably represents atelectatic bueno ges although infiltrate cannot be excluded. The remainder of the lungs are clear. No pleural effusion or pneumothorax. Additional findings: None. IMPRESSION: Right lower lobe opacity as described. I favor atelectatic changes. If fever is present, infiltrate should be considered. Signer Name: Kiet Myers Jr, MD Signed: 08/25/2019 9:36 AM Workstation Name: [id number]
[2019-08-25 09:45] LABS: BUN/Creatinine Ratio 13; Blood Urea Nitrogen 12 mg/dL (7-17); Hemolysis Index 5
[2019-08-25] MEDS ORDERED: LORazepam 2 MG/ML VIAL IV ONE (12:53)
[2019-08-25] MEDS ORDERED: LORazepam 2 MG/ML VIAL ONE (13:05)
[2019-08-25] MEDS ORDERED: ASPIRIN 81 MG TAB CHEW PO ONE (14:12)
[2019-08-25] MEDS ORDERED: ASPIRIN 325 MG TAB ONE (14:16)
--- NOTE | 2019-08-25 17:05 | History and Physical Report ---
History of Present Illness Date of examination: 08/25/19 Date of admission: 08/25/19 09:53 Chief complaint: chest pain History of present illness: 83 years old female with history of dementia, living in assisted living facility. Patient brought to the emergency room via EMS for evaluation of chest pain. Patient is pointing to her left side of the chest. When asked if the pain is sharp or pressure she applied pressure. Patient denied any shortness of breath, fever or chills. no Cough. When I evaluated the patient patient denies any chest pain or shortness of breath Patient is comfortable no history suggestive of nausea vomiting or abdominal pain 2 sets of cardiac enzymes negative, EKG no acute ST-T changes Past History Past Medical History: other (dementia, history of rectal bleeding, colonoscopy) Past Surgical History: No surgical history Social history: denies: smoking, alcohol abuse, prescription drug abuse Family history: no significant family history Medications and Allergies Allergies Allergy/AdvReac Type Severity Reaction Status Date / Time No Known Allergies Allergy Verified 11/29/18 10:57 Home Medications Medication Instructions Recorded Confirmed Last Taken Type Aricept 5 mg PO HS 09/18/18 09/18/18 Unknown History Meloxicam 7.5 mg PO BID 09/18/18 09/18/18 Unknown History Namenda 5 mg PO DAILY 09/18/18 09/18/18 Unknown History Plo Gel Premium Lecithin 0.5 ml TP Q6HR PRN 09/18/18 09/18/18 Unknown History clonazePAM 0.25 mg PO BID 09/18/18 09/18/18 Unknown History Hydrocortisone [Anucort-HC SUPPOS] 25 mg [place] Q12H #10 supp.rect 09/19/18 Unknown Rx levoFLOXacin [Levaquin TAB] 500 mg PO QDAY #7 tablet 09/19/18 Unknown Rx Anusol-Hc 2.5 applic [place] BID #1 12/01/18 Unknown Rx Miralax 3350 17 gram PO DAILY PRN #14 12/01/18 Unknown Rx Active Meds: Active Medications Miscellaneous Medication (Aricept) 5 mg PO HS [place] Miscellaneous Medication (Clonazepam) 0.25 mg PO BID [place] Miscellaneous Medication (Meloxicam) 7.5 mg PO BID [place] Miscellaneous Medication (Namenda) 5 mg PO DAILY [place] Review of Systems ROS unobtainable: due to mental status Exam - Constitutional Vitals: Temp Pulse Resp BP Pulse Ox 98.0 F 61 18 132/71 99 08/25/19 16:57 08/25/19 16:57 08/25/19 16:57 08/25/19 16:57 08/25/19 16:57 General appearance: Present: no acute distress, well-nourished - EENT Eyes: Present: PERRL, EOM intact - Neck Neck: Present: supple, normal ROM - Respiratory Respiratory effort: normal Respiratory: bilateral: diminished, negative: rales, rhonchi, wheezing - Cardiovascular Rhythm: regular Heart Sounds: Present: S1 & S2 - Extremities Extremities: no ischemia, No edema - Abdominal General gastrointestinal: Present: soft, non-tender, non-distended, normal bowel sounds - Integumentary Integumentary: Present: clear, warm - Musculoskeletal Musculoskeletal: strength equal bilaterally, generalized weakness - Psychiatric Psychiatric: other (minimal communication) - Neurologic Neurologic: moves all extremities Results - Labs CBC & Chem 7: 08/25/19 09:13 08/25/19 09:13 Labs: Abnormal lab results 08/25/19 08/25/19 Range/Units 09:13 09:13 WBC 4.3 L (4.5-11.0) K/mm3 RBC 3.51 L (3.65-5.03) M/mm3 Lymph % (Auto) 39.2 H (13.4-35.0) % Chloride 107.5 H (98-107) mmol/L Assessment and Plan --Chest pain: Atypical probably noncardiac Rule out acute coronary syndrome Serial cardiac enzymes echocardiogram if needed --Dementia; supportive care Continue current management --history of GI bleeding in the past --DVT prophylaxis; Lovenox --Full CODE STATUS Monitor closely and adjust management as needed
[2019-08-25] MEDS ORDERED: ARICEPT 5 MG PO SCH (22:00)
[2019-08-25] MEDS ORDERED: DONEPEZIL 5 MG TAB PO SCH (22:00)
[2019-08-25] MEDS ORDERED: CLONAZEPAM 0.25 MG PO SCH (22:00)
[2019-08-25] MEDS ORDERED: MELOXICAM 7.5 MG PO SCH (22:00)
[2019-08-25] MEDS: MELOXICAM 7.5 MG TAB PO SCH (22:43)
[2019-08-25] MEDS: clonazePAM 0.5 MG TAB PO SCH (22:43)
[2019-08-26 05:57] LABS: Creatine Kinase MB 2.6 ng/mL (0.0-4.0)
[2019-08-26] MEDS ORDERED: hydrALAZINE 20 MG/1 ML INJ IV PRN (09:06)
[2019-08-26] MEDS ORDERED: ASPIRIN EC 81 MG TAB PO SCH (10:00)
[2019-08-26] MEDS ORDERED: MEMANTINE 5 MG TAB PO SCH (10:00)
[2019-08-26] MEDS ORDERED: NAMENDA 5 MG PO SCH (10:00)
[2019-08-26] MEDS: MELOXICAM 7.5 MG TAB PO SCH (10:26)
[2019-08-26] MEDS: clonazePAM 0.5 MG TAB PO SCH (10:26)
--- NOTE | 2019-08-26 11:34 | Discharge Summary ---
Providers - Providers Date of Admission: 08/25/19 09:53 Date of discharge: 08/26/19 Attending physician: NINO JACOBO Primary care physician: [employer] Hospitalization Reason for admission: Atypical chest pain Condition: Stable Pertinent studies: CXR Hospital course: 83 years old female with history of dementia, living in assisted living facility. Patient brought to the emergency room via EMS for evaluation of chest pain. Patient is pointing to her left side of the chest. When asked if the pain is sharp or pressure she applied pressure. Patient denied any shortness of breath, fever or chills. no Cough. When I evaluated the patient patient denies any chest pain or shortness of breath Patient is comfortable no history suggestive of nausea vomiting or abdominal pain 2 sets of cardiac enzymes negative, EKG no acute ST-T changes. Patient's symptoms resolved. Today patient is comfortable,no new complaints. Stable at discharge. Discharge Diagnosis: --Chest pain: Atypical probably noncardiac symptoms resolved Serial cardiac enzymesx3 neg,EKG no acute ST-T changes Serial cardiac enzymes echocardiogram if needed --GERD: --Dementia; supportive care Continue current management --history of GI bleeding in the past: stable --DVT prophylaxis; Lovenox --Full CODE STATUS Stable at discharge Disposition: DC/TX-70 ANOTHER TYPE [facility] Time spent for discharge: 31 min Core Measure Documentation - Palliative Care Palliative Care/ Comfort Measures: Not Applicable - Core Measures Any of the following diagnoses?: none Exam - Constitutional Vitals: Temp Pulse Resp BP Pulse Ox 97.9 F 72 18 170/81 99 08/26/19 07:54 08/26/19 07:54 08/26/19 07:54 08/26/19 07:54 08/26/19 07:54 General appearance: Present: no acute distress, well-nourished - EENT Eyes: Present: PERRL, EOM intact - Neck Neck: Present: supple, normal ROM - Respiratory Respiratory effort: normal Respiratory: negative: rales, rhonchi, wheezing - Cardiovascular Rhythm: regular Heart Sounds: Present: S1 & S2 - Extremities Extremities: no ischemia, No edema - Abdominal General gastrointestinal: Present: soft, non-tender, non-distended, normal bowel sounds - Integumentary Integumentary: Present: clear, warm - Musculoskeletal Musculoskeletal: generalized weakness - Psychiatric Psychiatric: other (dementia/confused) - Neurologic Neurologic: moves all extremities Plan Activity: advance as tolerated, fall precautions Diet: regular Additional Instructions: Fall precautions Follow up with: PRIMARY CARE, [Primary Care Provider] - 3-5 Days Prescriptions: hydrALAZINE [Apresoline TAB] 25 mg PO BID #60 tablet
[2019-08-26] MEDS: hydrALAZINE 25 MG TAB PO SCH ×2 (12:33→13:28)
[2019-08-26 16:54] VITALS: BP 157/89
== END 2019-08-26 16:56 | disposition other institution (70) ==
LOC: ED 08:19 → 4A 09:53 → INTOOBSV 09:53 → 4A 13:45
PROVIDERS: ADMIT Internal Medicine; ATTEND Internal Medicine
DX: R07.89 Other chest pain (principal); F03.90 Unspecified dementia, unspecified severity, without behavioral disturbance, psychotic disturbance, mood disturbance, and anxiety
CPT/HCPCS: 36415; 71045; 80048; 82550; 82553; 84484; 85025; 87116; 93005; 93010; 96374; 99284; G0378; J2060

== ENCOUNTER 2019-12-02 12:13 | Emergency (ER) | payer MEDICARE ==
--- NOTE | 2019-12-02 12:42 | Emergency Department Report ---
HPI - General Time Seen by Provider: 12/02/19 12:30 - HPI HPI: 83-year-old -[place] female presents to the emergency department via EMS [facility] [place] with the complaint of the patient passing out and then having some altered mental status. Currently, the patient is awake without any complaints. She does have some confusion and is AAO x2 to person and place but not time. However the patient does have a history of dementia and the facility says that she is altered at baseline. ED Past Medical Hx - Past Medical History Hx Dementia: Yes Additional medical history: rectal polyps. Dementia - Social History Smoking Status: Never Smoker - Medications Home Medications: Home Medications Medication Instructions Recorded Confirmed Last Taken Type Aricept 5 mg PO HS 09/18/18 09/18/18 Unknown History Meloxicam 7.5 mg PO BID 09/18/18 09/18/18 Unknown History Namenda 5 mg PO DAILY 09/18/18 09/18/18 Unknown History Plo Gel Premium Lecithin 0.5 ml TP Q6HR PRN 09/18/18 09/18/18 Unknown History clonazePAM 0.25 mg PO BID 09/18/18 09/18/18 Unknown History Hydrocortisone [Anucort-HC SUPPOS] 25 mg [place] Q12H #10 supp.rect 09/19/18 Unknown Rx Anusol-Hc 2.5 applic [place] BID #1 12/01/18 Unknown Rx Miralax 3350 17 gram PO DAILY PRN #14 12/01/18 Unknown Rx hydrALAZINE [Apresoline TAB] 25 mg PO BID #60 tablet 08/26/19 Unknown Rx ED Review of Systems ROS: Stated complaint: ALTERED MENTAL STATUS Other details as noted in HPI Comment: Unobtainable due to pts medical conditions Physical Exam - Physical Exam Physical Exam: GENERAL: The patient is well-developed well-nourished. HENT: Normocephalic. Atraumatic. Patient has moist mucous membranes. EYES: Extraocular motions are intact. No nystagmus. NECK: Supple. Trachea is midline. CHEST/LUNGS: Clear to auscultation. There is no respiratory distress noted. HEART/CARDIOVASCULAR: Regular. There is no tachycardia. There is no murmur. ABDOMEN: Abdomen is soft, nontender. Patient has normal bowel sounds. There is no abdominal distention. SKIN: Skin is warm and dry. NEURO: AAO x2 to person and place but not time. The patient is cooperative. The patient has no motor or sensory. Normal speech. Cranial nerves II through XII grossly intact. MUSCULOSKELETAL: There is no tenderness or deformity. There is no evidence of acute injury. ED Medical Decision Making - Lab Data Result diagrams: 12/02/19 13:35 12/02/19 13:35 - EKG Data -: EKG Interpreted by Me EKG shows normal: sinus rhythm, axis, intervals, QRS complexes, ST-T waves Rate: normal - EKG Data When compared to previous EKG there are: previous EKG unavailable Interpretation: normal EKG - Radiology Data Radiology results: report reviewed, image reviewed CT head/brain wo con INDICATION: Altered mental status. TECHNIQUE: Routine CT head without contrast. All CT scans at this location are performed using CT dose reduction for ALARA by means of automated exposure control. COMPARISON: Head CT on 11/29/2018 FINDINGS: BRAIN / INTRACRANIAL CONTENTS: No acute hemorrhage, mass effect, midline shift, or hydrocephalus. No appreciable acute large territorial or lacunar infarct. No chronic infarct. Age-commensurate ventricular and cisternal/sulcal prominence. ORBITS: No significant abnormality of visualized orbits. SINUSES / MASTOIDS: No significant abnormality of visualized sinuses and mastoid air cells. ADDITIONAL FINDINGS: None. IMPRESSION: 1. No acute intracranial abnormality. No adverse change from the prior exam. - Medical Decision Making This patient was sent in from her custodial facility after she allegedly had a syncopal episode. Since being in the emergency department she has been awake, cooperative and in no acute distress. The patient does have a history of dementia and she appears to be at her baseline mental status. She does not appear to have any motor or sensory deficits and her cranial nerves have been intact. CT of the head without contrast does not show any bleed, shift, mass, ischemia, or any other acute process. Patient's labs have been unremarkable including CBC, metabolic panel, TSH, troponin. EKG does not show any signs of ST elevation IN or dysrhythmia. Her vital signs been stable throughout her ED course including being afebrile. The patient was seen ambulatory in the emergency department and appears stable. There is been no further episodes of passing out. For all these reasons the patient appears safe for discharge back to her facility. Discharge instructions have included to follow-up with a primary care physician in the next few days but to return to the closest emergency department with any further syncopal episodes or with any acute distress. - Differential Diagnosis Hypoglycemia, dysrhythmia, TIA, electrolyte abnormalities Critical Care Time: No Critical care attestation.: If time is entered above; I have spent that time in minutes in the direct care of this critically ill patient, excluding procedure time. ED Disposition Clinical Impression: Syncope Qualifiers: Syncope type: unspecified Qualified Code(s): R55 - Syncope and collapse Dementia Qualifiers: Dementia type: unspecified type Dementia behavioral disturbance: without behavioral disturbance Qualified Code(s): F03.90 - Unspecified dementia without behavioral disturbance Disposition: DC-01 TO HOME OR SELFCARE Is pt being admited?: No Condition: Stable Instructions: Syncope (ED) Additional Instructions: Please follow-up with the primary care physician in the next few days. Return to the closest emergency department with any further episodes of passing out, or with any acute distress. Referrals: PRIMARY CARE [Primary Care Provider] - 2-3 Days Time of Disposition: 15:25
[2019-12-02 13:54] LABS: Basophils % (Auto) 0.4 % (0.0-1.8); Eosinophils # (Auto) 0.1 K/mm3 (0.0-0.4); Eosinophils % (Auto) 1.5 % (0.0-4.3); Hematocrit 28.9 % (30.3-42.9); Hemoglobin 9.5 gm/dl (10.1-14.3); Lymphocytes # (Auto) 1.9 K/mm3 (1.2-5.4); Lymphocytes % (Auto) 42.5 % (13.4-35.0); Mean Corpuscular HGB Conc 33 % (30-34); Mean Corpuscular Volume 87 fl (79-97); Monocytes # (Auto) 0.4 K/mm3 (0.0-0.8); Monocytes % (Auto) 9.9 % (0.0-7.3); Platelet Count 221 K/mm3 (140-440); Red Blood Count 3.31 M/mm3 (3.65-5.03); Red Cell Distribution Width 15.5 % (13.2-15.2)
[2019-12-02 13:59] LABS: Bilirubin,Urine NEG (Negative); Blood,Urine NEG (Negative); Color,Urine Yellow (Yellow); Protein,Urine <15 mg/dL mg/dL (Negative); Urobilinogen,Urine < 2.0 mg/dL (<2.0); WBC,Urine < 1.0 /HPF (0.0-6.0)
[2019-12-02 14:17] LABS: Alanine Aminotransferase 12 units/L (7-56); Albumin 3.5 g/dL (3.9-5); BUN/Creatinine Ratio 14; Blood Urea Nitrogen 15 mg/dL (7-17); Calcium 8.5 mg/dL (8.4-10.2); Hemolysis Index 8
--- NOTE | 2019-12-02 14:37 | Cat Scan Report ---
CT head/brain wo con INDICATION: Altered mental status. TECHNIQUE: Routine CT head without contrast. All CT scans at this location are performed using CT dos e reduction for ALARA by means of automated exposure control. COMPARISON: Head CT on 11/29/2018 FINDINGS: BRAIN / INTRACRANIAL CONTENTS: No acute hemorrhage, mass effect, midline shift, or hydrocephalus. No appreciable acute large territorial or lacunar infarct. No chronic infarct. Age-commensurate ventricu lar and cisternal/sulcal prominence. ORBITS: No significant abnormality of visualized orbits. SINUSES / MASTOIDS: No significant abnormality of visualized sinuses and mastoid air cells. ADDITIONAL FINDINGS: None. IMPRESSION: 1. No acute intracranial abnormality. No adverse change from the prior exam. Signer Name: Alexys Nioxn MD Signed: 12/02/2019 2:32 PM Workstation Name: [id number]
[2019-12-02 15:38] VITALS: BP 112/55
== END 2019-12-02 16:54 | disposition home or self-care (01) ==
LOC: ED 12:13
DX: R55 Syncope and collapse (principal); R41.82 Altered mental status, unspecified; F03.90 Unspecified dementia, unspecified severity, without behavioral disturbance, psychotic disturbance, mood disturbance, and anxiety
CPT/HCPCS: 36415; 70450; 80053; 81001; 82140; 84443; 84484; 85025; 93005; 93010